=== PATIENT | male | born 2000 | race Caucasian/White ===

== ENCOUNTER 2021-04-08 19:54 | Emergency (ER) | payer OTHER, SELFPAY ==
[2021-04-08 21:05] VITALS: BP 142/78; PULSE 64; RESP 20; TEMP 37.4; O2SAT 100
--- NOTE | 2021-04-08 21:30 | ED.BURNSMOKE ---
HPI - Burn/Smoke Inhalation General Chief complaint: Burn/Smoke Inhalation Stated complaint: burn on knee and ankle Time Seen by Provider: 04/08/21 19:59 Source: patient Mode of arrival: ambulatory Limitations: no limitations History of Present Illness HPI Narrative: Patient is a 20 year old male who presents with chi from hot liquid to bilateral lower extremities. Patient reports spilling pot roast juice down legs at work. Patient has blisters to left lower leg, redness noted. Patient denies significant medical history. He refuses pain medication at this time. MD Complaint: burn Related Data Home Medications Medication Instructions Recorded Confirmed No Home Medications 04/08/21 04/08/21 Allergies Allergy/AdvReac Type Severity Reaction Status Date / Time No Known Drug Allergies Allergy Unknown Unknown Verified 04/08/21 22:03 Review of Systems Review of Systems: Narrative: CONSTITUTIONAL: Denies fever, chills, or sweats. EYES: Denies visual changes, redness, or discharge. ENT: Denies rhinorrhea, congestion, sore throat, or otalgia. CARDIOVASCULAR: Denies chest pain, palpitations, or edema. RESPIRATORY: Denies cough or dyspnea. GASTROINTESTINAL: Denies abdominal pain, nausea, vomiting, or diarrhea. GENITOURINARY: Denies dysuria or hematuria. SKIN: Chi to left knee and left lower leg from hot liquid. MUSCULOSKELETAL: Denies back pain, joint pain, or myalgia. NEUROLOGIC: Denies headache, numbness, dizziness, or weakness. PSYCHIATRIC: Denies anxiety or depression. PMFSH Past Medical History Medical History Fracture, clavicle Surgical History Surgical History Status post myringotomy with tube placement of both ears Social History Social History (Updated 04/08/21 @ 21:39 by COLBY Coburn) Smoking status: Never smoker Alcohol intake: current Alcohol use details: Occasional Substance use: never Living arrangements: with family Gender identity (if verbalized by the patient): Male Exam Narrative: Exam Narrative: GENERAL: Well-appearing, well-nourished, and in no acute distress. HEAD: Normocephalic, atraumatic. EYES: EOMI. No redness or drainage. Conjunctiva are normal. ENT: Mucous membranes pink and moist. CHEST: No respiratory distress. HEART: Regular rate and rhythm. EXTREMITIES: Normal range of motion. SKIN: Patient has superficial burn on left knee, superficial partial-thickness burn with blisters to left ankle, not circumferential. NEURO: No focal deficits. Alert and oriented x3. Gait steady. PSYCH: Normal affect. No signs of depression or anxiety. Course Vital Signs Vital signs: Vital Signs Temperature 37.4 C 04/08/21 21:05 Pulse Rate 64 04/08/21 21:05 Respiratory Rate 20 04/08/21 21:05 Blood Pressure 142/78 H 04/08/21 21:05 Pulse Oximetry 100 04/08/21 21:05 Temperature 37.4 C 04/08/21 21:05 Pulse Rate 64 04/08/21 21:05 Respiratory Rate 20 04/08/21 21:05 Blood Pressure 142/78 H 04/08/21 21:05 Pulse Oximetry 100 04/08/21 21:05 Reviewed. Patient has been instructed to follow-up with his PCP regarding his blood pressure. Procedures Burn Care/Dressing Burn care #1: Date: 04/08/21 Time: 21:41 Location: left knee and left ankle Debridement Necessary: Yes Type of Dressing: antibiotic ointment Neurovascular Functions Intact After Dressing Application: Yes Patient Tolerated Procedure: well MDM - Burn/Smoke Inhalation MDM Narrative Medical decision making narrative: Patient's chi cleansed, bacitracin, Xeroform and dressing applied. Discussed with patient the need to follow-up with [facility] burn clinic. Patient agrees with plan of care. Patient is stable for discharge to home with outpatient follow-up as discussed. Differential Diagnosis Differential diagnosis: Likely electrical
--- NOTE | 2021-04-08 21:58 | PC.NURSE ---
called pharmacy for medication
[2021-04-08] MEDS: BACITRACIN OINTMENT 15 GM TUBE 1 APPLIC TOPICAL (22:06)
[2021-04-08] MEDS: KETOROLAC (*BKC) 60 MG/2 ML VIAL IM (22:34)
[2021-04-08] MEDS: HYDROcodone/acetaminophen (*CRX) 5-325 MG TABLET 1 TAB PO (22:34)
[2021-04-08 23:08] VITALS: BP 140/80; PULSE 70; RESP 16; O2SAT 100
== END 2021-04-08 23:00 | disposition home or self-care (01) ==
PROVIDERS: Emergency Provider Nurse Practitioner; PCP Pediatrics
DX: T25.212A Burn of second degree of left ankle, initial encounter (principal); T31.0 Burns involving less than 10% of body surface; R03.0 Elevated blood-pressure reading, without diagnosis of hypertension; X12.XXXA Contact with other hot fluids, initial encounter
CPT/HCPCS: 16000; 16020; 96372; 99283; A9270; J1885

== ENCOUNTER 2025-05-22 16:24 | Outpatient (CLI) | payer OTHER, SELFPAY ==
--- NOTE | ~2025-05-22 | XR_ITS ---
RIGHT XR hand LT min 3V Indication: FX TWO WEEKS AGO; EVAL FOR SURGERY Comparison: None Technique: 3 view. Findings: There is a displaced fracture of the mid second metacarpal. No significant degenerative changes. Soft tissue swelling. Impression: Second metacarpal fracture Reviewed, dictated and finalized at location A. Impression: Second metacarpal fracture
--- OUTSIDE RECORDS SUMMARY | 2025-05-22 16:29 | XMS_ITS | Clinical Summary ---
Author Organization [facility] Address [address] [place] [address] Care Team Providers Care Food And Beverage Checker Name Role Phone Shankar Gonzalez MD Primary Care Provider [phone] Source Comments [facility],non-owned Affiliates and Associated Physician Practices is amultiple site organization consisting of ambulatory clinics and hospital sitesin [place], [place], [place] and [place]. This disclosure is being madepursuant to the Care Everywhere program and may not contain all information available regarding this patient. Last updated 18.[facility] Allergies No known active allergies Medications * Be aware that medications may not be up to date on this document. Alwaysverify current medications with the patient. 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 Gender Identity Not on file Sexual Orientation Not on file Plan of Treatment Health Maintenance Due Date Last Done Comments HIV SCREENING 12/19/2014 HPV VACCINE (1 - Male 3-dose series) 12/19/2014 HEPATITIS C SCREENING 12/15/2017 DTAP/TDAP/TD VACCINES (1 - Tdap) 12/19/2018 HEPATITIS B VACCINE (1 of 3 - 19+ 3-dose series) 12/19/2018 DEPRESSION SCREENING 09/14/2024 COVID-19 VACCINE (1 - 2023-2 5 season) 2025 INFLUENZA VACCINE (#1) 2025 ZOSTER VACCINE (1 of 2) 12/19/2049 HIB VACCINE Aged Out No longer eligi ble based on patient's age to complete this topic MENINGOCOCCAL (Group B) VACC INE SHARED DECISION-MAKING Aged Out No longer eligibl e based on patient's age to complete this topic MENINGOCOCCAL GROUPS A/C/Y/W VACCINE Aged Out No longer eligible b ased on patient's age to complete this topic PNEUMOCOCCAL VACCINE Aged Out No long er eligible based on patient's age to complete this topic Care Teams Food And Beverage Checker Relationship Specialty Start Date End Date Shankar Gonzalez MD [address] [place] [id number] PCP - General 06/10/11
== END 2025-05-22 16:25 | disposition home or self-care (01) ==
LOC: ANHIMG 16:27
PROVIDERS: PCP Family Medicine; Visit Provider Plastic Surgery
DX: S62.301A Unspecified fracture of second metacarpal bone, left hand, initial encounter for closed fracture (principal); X58.XXXA Exposure to other specified factors, initial encounter
CPT/HCPCS: 73130

== ENCOUNTER 2025-05-31 01:34 | Day surgery (SDC) | payer OTHER, SELFPAY ==
[2025-05-24 13:36] VITALS: BMI 22.5
--- NOTE | 2025-05-24 13:37 | PC.NURSE ---
Report to the Outpatient Waiting Room, entrance under the green pavilion located off [facility], at time _1000_ on date _[id number]_. Planned Procedure Time: _1200_.? Time changes happen often and if your time is changed the preop area will call you the afternoon before. - You and your visitor will be asked to self-screen and do not enter if you have any COVID symptoms. Please call surgeon if you need to reschedule. - A mask is optional within the hospital at this time. Patients may have clear liquids (water, carbonated beverages, clear teas, apple juice) until 4am with a maximum of 20 ounces. Nothing to drink after 4am. - No food from midnight until time of surgery and no smoking, or chewing tobacco (or any form of nicotine). No chewing gum, candy or mints. Take only the following medications with a SIP of water on the morning of surgery: __Sertraline___ DO NOT STOP ANY OF YOUR OTHER PRESCRIPTION MEDICATIONS PRIOR TO SURGERY EXCEPT THE FOLLOWING Hold all vitamins and supplements for 3 days per anesthesiologist. Medications to discontinue per physician Date to take last dose Please no make-up, nail tristanian, hairspray, perfume, deodorant, or body powder the day of surgery.? No jewelry (including any body piercings) or valuables the day of surgery, leave them at home.? Please take a shower or bath the night before, or the morning of, surgery with an antibacterial soap.? Wear comfortable, loose fitting clothing.? - Jewelry must be removed prior to entering the operating room.? Rings and piercings that are not removed may be cut off. - The hospital will not accept responsibility for valuables.? - Please leave all valuables, including medications, at home the day of surgery. If you are going home after surgery, a licensed test car driver must drive you home.? - NO public transportation without another adult if you receive anesthesia. - We recommend that an adult stay with you for 24 hours following discharge. - We also recommend that you do not drive, make important decision, drink alcoholic beverages, or take any drugs that were not prescribed by your health care provider for at least 24 hours after your discharge time. Follow any additional instructions given to you from your surgeon. Telephone instructions given to __Caleb___and asked if any additional questions and then verbalized understanding. Patient advised to call surgeon office or pre surgery nurse liaison [phone] if any additional questions.
[2025-05-31] VITALS (8 sets, daily range): BP systolic 119–150; BP diastolic 63–86; PULSE 64–91; RESP 12–16; TEMP 36.3–36.6; O2SAT 93–100
--- NOTE | ~2025-05-31 | XR_ITS ---
EXAMINATION: XR surgery orthopedic DATE: 05/31/2025 13:21 INDICATION: ORIF left second metacarpal fracture TECHNIQUE: 6 fluoroscopic images of the left second metacarpal were obtained during procedure performed by Dr. Pineda. Radiologist was not present for the imaging or procedure. The amount of fluoroscopy time used during this procedure was 1.1 minutes. Total DAP was 6.859 cGycm^2. COMPARISON: 05/22/2025 FINDINGS: Interval reduction of an oblique diaphyseal fracture of the left second metacarpal. Fractures fixed with a dorsal plate and screws. Alignment of the fixations appears near-anatomic. There is some callus formation along the proximal and distal fracture margins. Lucent postoperative gas extends across th e fracture plane. IMPRESSION: 1. Fluoroscopy utilized during reduction and dorsal plate-screw fixation of an oblique diaphyseal fracture of the left second metacarpal which is in near- anatomic alignment. See procedure note for further detail. Reviewed, dictated and finalized at location A. IMPRESSION: 1. Fluoroscopy utilized during reduction and dorsal plate-screw fixation of an oblique diaphyseal fracture of the left second metacarpal which is in near-sindy omic alignment. See procedure note for further detail.
[2025-05-31] MEDS: ACETAMINOPHEN 500 MG TABLET 1000 MG PO (10:05)
[2025-05-31] MEDS: LACTATED RINGERS 1,000 ML 30 ML IV CONT ×2 (10:10→13:33)
--- NOTE | 2025-05-31 10:25 | P.PNAN_ITS ---
Anes - Initial Pre Proc Eval Procedure: Operation Date: 05/31/25 12:00 Proposed Procedures p Left Second Metacarpal Open Reduction Internal Fixation - Shirin Pineda MD Date/Time: 05/31/25 10:25 Surgeon: Shirin Pineda MD Pre Op Diagnosis: fx left 2nd metacarpal Patient Data Age: 24 Gender: M Height: 1.91 m Weight: 79.9 kg Last Vital Signs Temp 36.6 C 05/31/25 09:55 Pulse 75 05/31/25 09:55 Resp 16 05/31/25 09:55 BP 128/66 05/31/25 09:55 Pulse Ox 99 05/31/25 09:55 O2 Del Method Room Air 05/31/25 09:55 Allergies Allergy/AdvReac Type Severity Reaction Status Date / Time No Known Drug Allergies Allergy Unknown Unknown Verified 05/24/25 13:29 Home Medications ?Medication ?Instructions ?Recorded ?Confirmed ?Type sertraline 100 mg tablet 100 mg PO DAILY #90 tabs 11/0805/31/25 Rx Patient hx anesthesia problems: none Family hx anesthesia problems: none Results Review: All pre-operative results and documents have been reviewed as part of the pre- operative evaluation. [facility] Past Medical History Medical History MDD (major depressive disorder), recurrent episode Surgical History Surgical History Status post myringotomy with tube placement of both ears Social History Social History (Updated 02/15/25 @ 07:12 by Kiran Cleaning DO) Smoking status: Current every day smoker (vape) Tobacco type: e-cigarettes/vaping Alcohol intake: current Drinks per week: 1 Substance use: current Substance use type: marijuana Other substance usage details: Occasional Do You Feel Safe in your Home?: Yes Lack of Transportation: No Lack of Food: Never True Current Housing: I Have Housing Concerned About Future Housing: No Difficulty Paying Gas/Electric Bills: No Difficulty Paying for Meds: No Currently Unemployed: YES Education: High School Diploma/GED Living arrangements: with family Occupation/Education: unemployed Gender identity (if verbalized by the patient): Male Spiritual care concerns: No Anes - Eval Final PreProcedure Day of Procedure 05/31/25 10:25 Patient weight: normal Heart: regular rate and rhythm Lungs: clear to auscultation Airway: Mallampati scale class II Neurological: alert and oriented Last oral intake: >/= 8 hours ASA classification: II Emergent: no Anesthetic plan: proceed Anesthesia type and monitoring: general LMA and standard monitoring Results Review: All pre-operative results and documents have been reviewed as part of the pre- operative evaluation. Informed Consent: The patient's anesthetic plan and its attendant risks and benefits were discussed with the patient/family/POA. Questions were solicited and answers provided to the satisfaction of the patient/family/POA.
--- NOTE | 2025-05-31 11:23 | P.OP_ITS ---
Procedure Note - Detailed Date of Procedure 05/31/25 Pre-op Diagnosis fx left 2nd metacarpal Post-op Diagnosis Same Procedure Performed orif left 2nd mc fx Surgeon Shirin Pineda MD Bodily Injury Adjuster anita poon pa-c Anesthesia MAC Description of Procedure INFORMED CONSENT: The patient was seen and examined and marked in the pre-op area.? The patient signed the consent form. PROCEDURE IN DETAIL:The patient taken back to OR on the stretcher in supine position. Time out performed with anesthesia, surgeon and staff agreeing on patient's name site and surgery to be performed SCDs were placed on the lower extremities and inflated. A tourniquet was placed on {left} upper extremity and antibiotics given IV After anesthesia administered sedation I injected {8}cc 1%lido with epi and 0.5% marcaine plain at the operative site and median and radial nerve blocks at the wrist The?{/left upper extremity}?was prepped and draped in sterile fashion the??{left upper extremity} was? exsanguinated with Esmarch bandage and tourniquet inflated to 250mmHg I proceeded with making a longitudinal incision over the left 2nd metacarpal on the dorsum of the hand through skin and dermis with a 15 blade scalpel. Littler scissors were used to spread through subcutaneous tissue down to periosteum. Dorsal branch of radial sensory nerve and extensor tendon was retracted and protected appropriately. I made an incision in the periosteum and reflected this on the proximal distal fracture fragments. There was a significant amount of callus formation across the displaced fracture. Using rongeur and osteotome this was debrided and resected until I was able to achieve mobility of the fracture fragments. Initial reduction was maintained with placement of 4 5 K- wires and verified on multiple views of fluoroscopy. I proceeded with placing an Arthrex 2 mm T-plate in standard fashion using 3 screws proximally and 4 screws distally. There was no impingement on finger range of motion. Screw length and reduction was verified on multiple views of fluoroscopy. There was a minor amount of easily correctable scissoring noted but this may have been due to tension from the patient's delayed presentation. I irrigated with normal saline. Periosteum was covered over the plate with 3-0 Vicryl suture. 3-0 Vicryl was used for dermis and 4-0 Monocryl for subcuticular closure. A dressing of dermabond, 4x4, wilbur, and a volar splint in safe position was applied and secured with an dayna bandage after the tourniquet was let down noting the hand was warm and well perfused. The patient was then awaken from anesthesia and transferred to the recovery room in stable condition.? Complications - none EBL- 0cc Disposition - home in stable condition Anita Poon PA-C was essential for positioning, retraction, closure and dressing placement [facility] Billing Surgery - Charge Forward: Surgery Billing ([id number] for anita)
--- NOTE | 2025-05-31 11:23 | WPDHPUPDATE1 ---
History and Physical Update Update Date/Time: 05/31/25 11:23 Patient seen and examined in pre-operative holding area. No interval change in medical history or symptoms. Patient recalls previous discussion of benefits and alternatives to procedure. Continues to desire to proceed with open reduction and internal fixation left second metacarpal fracture. Reviewed procedure, post-op expectations and risks including but not limited to bleeding, infection, injury to tendon/nerve/vessel, decreased hand function, stiffness, RSD, no change or worsening of symptoms, malunion, nonunion, hardware complications. I discussed the possible use of assistants and their participation in the case. Patient stated understanding and signed the consent form wishing to proceed.
[2025-05-31] MEDS: ceFAZolin 2 GM in SODIUM CHLORIDE 0.9% IV 50 ML 100 ML IVPB (11:57)
[2025-05-31] MEDS: BUPivacaine HCL 0.5% 10 ML AMP INFILTRATE (12:18)
[2025-05-31] MEDS: LIDOCAINE 1% PF INJ 5 ML VIAL 10 ML INFILTRATE (12:18)
[2025-05-31] MEDS: oxyCODONE HCL (*CRX) 5 MG TAB IR PO (14:33)
== END 2025-05-31 15:13 | disposition home or self-care (01) ==
PROVIDERS: PCP Family Medicine; Visit Provider Plastic Surgery
PROC: (CPT 26615; principal; 2025-05-31 12:00)
DX: S62.321A Displaced fracture of shaft of second metacarpal bone, left hand, initial encounter for closed fracture (principal); W23.1XXA Caught, crushed, jammed, or pinched between stationary objects, initial encounter; F32.9 Major depressive disorder, single episode, unspecified; F17.290 Nicotine dependence, other tobacco product, uncomplicated; F12.90 Cannabis use, unspecified, uncomplicated; Z98.890 Other specified postprocedural states
CPT/HCPCS: 26615; 99199; J0690; A9270; J1100; J1171; J2003; J2250; J2405; J2704; J3010; J7120

== ENCOUNTER 2025-06-12 15:59 | Outpatient (CLI) | payer OTHER, SELFPAY ==
--- NOTE | ~2025-06-12 | XR_ITS ---
EXAMINATION: XR hand LT min 3V, 06/12/2025 16:09 CDT HISTORY: S62.321A - Displaced fracture of shaft of second metacarp... COMPARISON: No comparisons available. Findings: Postsurgical changes second metacarpal with healing fracture No significant degenerative changes. Soft tissues unremarkable. Impression: Postsurgical changes Reviewed, dictated and finalized at location P. Impression: Postsurgical changes
== END 2025-06-12 16:00 | disposition home or self-care (01) ==
PROVIDERS: PCP Physician Assistant Surgical; Visit Provider Physician Assistant Surgical
DX: S62.321D Displaced fracture of shaft of second metacarpal bone, left hand, subsequent encounter for fracture with routine healing (principal); X58.XXXD Exposure to other specified factors, subsequent encounter
CPT/HCPCS: 73130

== ENCOUNTER 2025-07-04 12:40 | Outpatient (CLI) | payer OTHER, SELFPAY ==
--- NOTE | ~2025-07-04 | XR_ITS ---
EXAMINATION: XR hand LT min 3V, 07/04/2025 12:45 CDT HISTORY: S62.321A - Displaced fracture of shaft of second metacarp... COMPARISON: No comparisons available. Findings: Postsurgical changes with fixation of the second metacarpal with healing fracture No significant degenerative changes. Soft tissues unremarkable. Impression: Postsurgical changes Reviewed, dictated and finalized at location P. Impression: Postsurgical changes
== END 2025-07-04 12:41 | disposition home or self-care (01) ==
LOC: MICIMG 12:42
PROVIDERS: PCP Family Medicine; Visit Provider Plastic Surgery
DX: S62.321D Displaced fracture of shaft of second metacarpal bone, left hand, subsequent encounter for fracture with routine healing (principal); X58.XXXD Exposure to other specified factors, subsequent encounter; Z98.890 Other specified postprocedural states
CPT/HCPCS: 73130